=== PATIENT | male | born 1995 | race Caucasian/White ===

== ENCOUNTER 2020-10-22 13:39 | Outpatient (CLI) | payer OTHER ==
--- NOTE | 2020-10-22 17:01 | MRI Report ---
PROCEDURE: Shoulder LT W/O INDICATIONS: PAIN IN LEFT SHOULDER TECHNIQUE: Noncontrast oblique coronal T2 fast spin echo with fat saturation, oblique sagittal T1 spin echo and T2 fast spin echo with fat saturation, axial T1 spin echo and T2 fast spin echo with fat saturation t hrough the shoulder. COMPARISON: None. FINDINGS: Image quality: Excellent. Rotator cuff: Mild T2 signal elevation throughout the mid and anterior supraspinatus tendon at the hu meral insertion site extending to the muscular tendinous junction, indicating tendinopathy. Subscapul sandra, infraspinatus, and teres minor tendons are intact. No rotator cuff atrophy. Bones and bursae: No bone marrow contusions or fractures. Moderate acromioclavicular joint degenerat ion. The acromion demonstrates conventional anatomy, without an os acromiale. No pathologic subacro mial/subdeltoid bursal fluid is present. Capsule and soft tissues: In the absence of intra-articular contrast, the labrum and glenohumeral li gaments appear intact. The long head of the biceps tendon demonstrates normal location and morpholog y. The rotator interval appears normal, without fibrosis. The coracohumeral ligament is normal in t hickness. IMPRESSION: 1. Supraspinatus tendinopathy. No evidence of rotator cuff tear. 2. Acromioclavicular joint osteoarthritis. Reviewed by: Prabhakar Martinez MD on 10/22/2020 4:59 PM PDT Approved by: Prabhakar Martinez MD on 10/22/2020 4:59 PM PDT Station ID: [id number]
== END 2020-10-22 13:40 | disposition home or self-care (01) ==
LOC: DI 13:39
DX: M75.92 Shoulder lesion, unspecified, left shoulder (principal); M19.012 Primary osteoarthritis, left shoulder

== ENCOUNTER 2021-12-11 13:39 | Outpatient (CLI) | payer OTHER ==
--- NOTE | 2021-12-11 17:03 | MRI Report ---
PROCEDURE: LUMBAR SPINE WO INDICATIONS: BACK AND HIP PAIN TECHNIQUE: Noncontrast sagittal T1 spin echo and T2 fast echo, sagittal STIR, axial T1 and T2 fast spin echo thr ough the lumbar spine. In cases with scoliosis, additional coronal T2 fast spin echo may be performe d. COMPARISON: None. FINDINGS: Image quality: Diagnostic Alignment and Curvature: There is normal bony alignment. Bone Marrow: Marrow is of normal overall signal. No acute vertebral body compression fractures. Spinal Cord: Conus medullaris terminates at the L1 level. Visualized cord demonstrates normal signa l and size. Paraspinous Soft Tissues: No paravertebral masses. 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 T12-L1: Normal in appearance. L1-L2: Normal in appearance. L2-L3: Normal in appearance. L3-L4: The disc height and disc signal are well preserved. Mild to moderate disc bulge is seen. Mi ld facet hypertrophy is seen. There is moderate right-sided and mild left-sided neuroforaminal narro wing seen. No central canal narrowing is seen. L4-L5: The disc height and disc signal are well preserved. Mild disc bulge is seen, with a mild mary tral disc protrusion. Mild to moderate facet hypertrophy is seen. Mild to moderate bilateral neurofor aminal narrowing can be seen. No significant central canal narrowing is seen. L5-S1: No significant abnormality is seen. 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
== END 2021-12-11 13:40 | disposition home or self-care (01) ==
LOC: DI 13:39
PROVIDERS: ATTEND Student in an Organized Health Care Education/Training Program
DX: M47.26 Other spondylosis with radiculopathy, lumbar region (principal); M48.061 Spinal stenosis, lumbar region without neurogenic claudication; M51.26 Other intervertebral disc displacement, lumbar region

== ENCOUNTER 2023-05-15 14:33 | Emergency (ER) | payer OTHER ==
[2023-05-15 14:41] VITALS: BP 145/83; O2SAT 98
--- NOTE | 2023-05-15 14:48 | ED Physician Documentation ---
History of Present Illness - Stated complaint Stated Complaint: FATIGUE/SOA/COUGHING - Chief complaint Chief Complaint: General - History obtained from History obtained from: Patient, Family - History of Present Illness Timing: How many days ago (2) Pain level max: 3 Pain level now: 3 - Additonal information Additional information: 28-year-old male, active [employer], presents to the emergency department with cough, body aches and congestion for the past several days. States that he had a hard time breathing last night. Not having a hard time breathing now. He vapes. He states he used inhalers as a child but does not use them now. He states that he was exposed to RSV. Has not taken any medications at home for coughing, congestion or bodyaches. Denies any other cigarette use. Denies any other respiratory issues. No vomiting. He states that his was exposed to RSV at work and that the lady who exposed his to the RSV, her has pneumonia so he is concerned he may have pneumonia as well. Review of Systems Constitutional: reports: Chills. denies: Fever Ears: denies: Ear pain Nose: reports: Rhinorrhea / runny nose, Congestion Cardiac: denies: Chest pain / pressure Respiratory: reports: Dyspnea, Cough, Wheezing GI: denies: Nausea, Vomiting, Diarrhea Skin: denies: Rash Musculoskeletal: denies: Neck pain, Back pain Neurologic: denies: Headache PD PAST MEDICAL HISTORY - Past Medical History Past Medical History: No - Past Surgical History Past Surgical History: No - Present Medications Home Medications: Ambulatory Orders Medication Instructions Recorded Confirmed Albuterol Sulf [Ventolin Hfa 1 - 2 puffs INH Q4HR PRN #1 each 05/15/23 Inhaler] Benzonatate [Tessalon] 200 mg PO TID PRN #30 cap 05/15/23 Cetirizine HCl/Pseudoephedrine 1 tab PO BID PRN #20 tab 05/15/23 [Zyrtec-D ER 5 mg-120 mg Tablet] - Allergies Allergies/Adverse Reactions: Allergies Allergy/AdvReac Type Severity Reaction Status Date / Time No Known Drug Allergies Allergy Verified 05/15/23 14:35 - Social History Does the pt smoke?: No Smoking Status: Never smoker Does the pt drink ETOH?: No Does the pt have substance abuse?: No - Immunizations Immunizations are current?: Yes - POLST Patient has POLST: No PD ED PE NORMAL - Vitals Vital signs reviewed: Yes - General General: Alert and oriented X 3, No acute distress - HEENT HEENT: Moist mucous membranes, Pharynx benign - Neck Neck: Supple, no meningeal sign - Cardiac Cardiac: RRR - Respiratory Respiratory: No respiratory distress, Other (Mild wheezing bilaterally) - Abdomen Abdomen: Soft, Non tender, Non distended - Derm Derm: Warm and dry, No rash - Neuro Neuro: Alert and oriented X 3 Results - Vitals Vitals: Vital Signs - 24 hr 05/15/23 05/15/23 14:35 15:12 Temperature 37.2 C Heart Rate 72 74 Respiratory 16 20 Rate Blood Pressure 145/83 H O2 Saturation 98 Oxygen O2 Source Room air - Labs Labs: Laboratory Tests 05/15/23 14:45 Nasal Adenovirus (PCR) NOT DETECTED Nasal B. parapertussis DNA (PCR) NOT DETECTED Nasal Coronavir 229E PCR NOT DETECTED Nasal Coronavir HKU1 PCR NOT DETECTED Nasal Coronavir NL63 PCR NOT DETECTED Nasal Coronavir OC43 PCR NOT DETECTED Nasal Enterovir/Rhinovir PCR NOT DETECTED Nasal Influenza B PCR NOT DETECTED Nasal Influenza A PCR NOT DETECTED Nasal Parainfluen 1 PCR NOT DETECTED Nasal Parainfluen 2 PCR NOT DETECTED Nasal Parainfluen 3 PCR NOT DETECTED Nasal Parainfluen 4 PCR NOT DETECTED Nasal RSV (PCR) NOT DETECTED Nasal B.pertussis DNA PCR NOT DETECTED Nasal C.pneumoniae (PCR) NOT DETECTED Andrew Human Metapneumo PCR NOT DETECTED Nasal M.pneumoniae (PCR) NOT DETECTED Nasal SARS-CoV-2 (PCR) NOT DETECTED - Rads (name of study) cxr Relevant Findings:: Final report received, See rad report PD Medical Decision Making - ED course Complexity details: reviewed results, re-evaluated patient, considered differential, d/w patient, d/w family ED course: Patient is very well-appearing, nontoxic. Afebrile. No hypoxia. No respiratory distress. Chest x-ray does not show any acute abnormalities. Respiratory PCR is negative. Feels better after albuterol treatment. Will place on decongestants, cough medication and albuterol inhaler for home. [place]. Patient counseled regarding signs and symptoms for which I believe and urgent re- evaluation would be necessary. Patient with good understanding of and agreement to plan and is comfortable going home at this time This document was made in part using voice recognition software. While efforts are made to proofread this document, sound alike and grammatical errors may occur. Departure - Departure Disposition: 01 Home, Self Care Clinical Impression: Viral URI Condition: Good Instructions: ED Viral Syndrome Follow-Up: MIGUEL BYRNE MD [Primary Care Provider] - Within 1 week Prescriptions: Albuterol Sulf [Ventolin Hfa Inhaler] 1 - 2 puffs INH Q4HR PRN #1 each PRN Reason: Shortness Of Air/Wheezing Benzonatate [Tessalon] 200 mg PO TID PRN #30 cap PRN Reason: Cough Cetirizine HCl/Pseudoephedrine [Zyrtec-D ER 5 mg-120 mg Tablet] 1 tab PO BID PRN #20 tab PRN Reason: nasal congestion Comments: Your prescriptions were [facility] in [place]. Please follow-up with your doctor as needed for any further care. Your x-ray does not show any evidence of pneumonia. Drink plenty of fluids and rest. Forms: PCP List, Activity restrictions Discharge Date/Time: 05/15/23 15:39
--- NOTE | 2023-05-15 15:04 | XRAY Report ---
PROCEDURE: Chest 2V INDICATIONS: cough TECHNIQUE: 2 views of the chest were acquired. COMPARISON: None. FINDINGS: Surgical changes and devices: None. Lungs and pleura: No pleural effusions or pneumothorax. Lungs are clear. Mediastinum: Mediastinal contours appear normal. Heart size is normal. Bones and chest wall: No suspicious bony lesions. Overlying soft tissues appear unremarkable. IMPRESSION: No acute cardiopulmonary process. Reviewed by: Lucas Lozano MD on 05/15/2023 2:03 PM PILAR Approved by: Lucas Lozano MD on 05/15/2023 2:03 PM AKRICK Station ID: [id number]
[2023-05-15] MEDS: ALBUTEROL NEB 2.5 MG/3 ML INH STA (15:09)
[2023-05-15 15:50] LABS: B. PARAPERTUSSIS- RESP PCR PAN NOT DETECTED; B. PERTUSSIS- RESP PCR PANEL NOT DETECTED; C. PNEUMONIAE- RESP PCR PANEL NOT DETECTED; CORONAVIRUS 229E-RESP PCR NOT DETECTED; CORONAVIRUS HKU1-RESP PCR NOT DETECTED; CORONAVIRUS NL63-RESP PCR NOT DETECTED; CORONAVIRUS OC43-RESP PCR NOT DETECTED; HUMAN METAPNEUMOVIRUS NOT DETECTED; INFLUENZA A- RESP PCR PANEL NOT DETECTED; INFLUENZA B - RESP PCR PANEL NOT DETECTED; M. PNEUMONIAE- RESP PCR PANEL NOT DETECTED; PARAINFLUENZA VIRUS 1 NOT DETECTED; PARAINFLUENZA VIRUS 2 NOT DETECTED; PARAINFLUENZA VIRUS 3 NOT DETECTED; PARAINFLUENZA VIRUS 4 NOT DETECTED; RHINOVIRUS/ENTEROVIRUS NOT DETECTED; RSV- RESP PCR PANEL NOT DETECTED; SARS-CoV-2 -RESP PCR PANEL NOT DETECTED
== END 2023-05-15 15:39 | disposition home or self-care (01) ==
LOC: ED 14:33
DX: J06.9 Acute upper respiratory infection, unspecified (principal); Z11.52 Encounter for screening for COVID-19
CPT/HCPCS: 87633; 94640; 94664; 99283; 99284

== ENCOUNTER 2023-08-02 15:33 | Emergency (ER) | payer OTHER ==
--- NOTE | 2023-08-02 15:51 | ED Physician Documentation ---
PD HPI MHE - Stated complaint Stated Complaint: SI - Chief complaint Chief Complaint: MHE - History obtained from History obtained from: Patient PD PAST MEDICAL HISTORY - Past Medical History Past Medical History: Yes Cardiovascular: None Respiratory: None Neuro: None Endocrine/Autoimmune: None GI: None : None HEENT: None Psych: Depression, Anxiety Musculoskeletal: Chronic back pain Derm: None - Past Surgical History Past Surgical History: No Derm: Skin cancer surgery - Present Medications Home Medications: Ambulatory Orders Medication Instructions Recorded Confirmed Albuterol Sulf [Ventolin Hfa 1 - 2 puffs INH Q4HR PRN #1 each 05/15/23 08/02/23 Inhaler] Benzonatate [Tessalon] 200 mg PO TID PRN #30 cap 05/15/23 08/02/23 Cetirizine HCl/Pseudoephedrine 1 tab PO BID PRN #20 tab 05/15/23 08/02/23 [Zyrtec-D ER 5 mg-120 mg Tablet] Sertraline HCl 200 mg PO HS 08/02/23 08/02/23 hydrOXYzine pamoate [Hydroxyzine 25 mg PO QID PRN 08/02/23 08/02/23 Pamoate] - Allergies Allergies/Adverse Reactions: Allergies Allergy/AdvReac Type Severity Reaction Status Date / Time No Known Drug Allergies Allergy Verified 08/02/23 15:40 - Social History Does the pt smoke?: No Smoking Status: Never smoker Does the pt drink ETOH?: Yes Does the pt have substance abuse?: No - Immunizations Immunizations are current?: Yes - POLST Patient has POLST: No Results - Vitals Vitals: Vital Signs - 24 hr 08/02/23 15:41 Temperature 36.5 C Heart Rate 63 Respiratory 20 Rate Blood Pressure 144/77 H O2 Saturation 100 Oxygen O2 Source Room air Departure - Departure
--- NOTE | 2023-08-02 15:51 | ED Physician Documentation ---
PD HPI MHE - Stated complaint Stated Complaint: SI - Chief complaint Chief Complaint: MHE - History obtained from History obtained from: Patient - History of Present Illness Primary symptom: Suicidal ideation, Depression, Other (awakening from sleep often the past nights.). No: Suicide attempt PD PAST MEDICAL HISTORY - Past Medical History Past Medical History: Yes Cardiovascular: None Respiratory: None Neuro: None Endocrine/Autoimmune: None GI: None : None HEENT: None Psych: Depression, Anxiety Musculoskeletal: Chronic back pain Derm: None - Past Surgical History Past Surgical History: No Derm: Skin cancer surgery - Present Medications Home Medications: Ambulatory Orders Medication Instructions Recorded Confirmed Albuterol Sulf [Ventolin Hfa 1 - 2 puffs INH Q4HR PRN #1 each 05/15/23 08/02/23 Inhaler] Benzonatate [Tessalon] 200 mg PO TID PRN #30 cap 05/15/23 08/02/23 Cetirizine HCl/Pseudoephedrine 1 tab PO BID PRN #20 tab 05/15/23 08/02/23 [Zyrtec-D ER 5 mg-120 mg Tablet] Escitalopram [Lexapro] 10 mg PO DAILY #30 tablet 08/02/23 Sertraline HCl 200 mg PO HS 08/02/23 08/02/23 hydrOXYzine pamoate [Hydroxyzine 25 mg PO QID PRN 08/02/23 08/02/23 Pamoate] traZODone [Desyrel] 25 mg PO HS PRN #5 tablet 08/02/23 - Allergies Allergies/Adverse Reactions: Allergies Allergy/AdvReac Type Severity Reaction Status Date / Time No Known Drug Allergies Allergy Verified 08/02/23 15:40 - Social History Does the pt smoke?: No Smoking Status: Never smoker Does the pt drink ETOH?: Yes Does the pt have substance abuse?: No - Immunizations Immunizations are current?: Yes - POLST Patient has POLST: No Results - Vitals Vitals: Oxygen O2 Source Room air - Labs Labs: Laboratory Tests 08/02/23 08/02/23 08/02/23 15:58 15:58 16:00 WBC 7.6 RBC 5.11 Hgb 15.2 Hct 46.3 MCV 90.6 MCH 29.7 MCHC 32.8 RDW 12.7 Plt Count 320 MPV 10.2 Neut # (Auto) 2.7 Lymph # (Auto) 3.9 H [place] # (Auto) 0.5 Eos # (Auto) 0.4 Baso # (Auto) 0.1 Absolute Nucleated RBC 0.00 Nucleated RBC % 0.0 Sodium 139 Potassium 3.6 Chloride 102 Carbon Dioxide 31 Anion Gap 6.0 BUN 19 Creatinine 1.1 Estimated GFR (MDRD) 81 L Glucose 90 Calcium 9.6 Magnesium 1.9 Total Bilirubin 0.3 AST 24 ALT 28 Alkaline Phosphatase 78 Total Creatine Kinase 485 H Total Protein 6.5 Albumin 5.0 Globulin 1.5 L Albumin/Globulin Ratio 3.3 H Lipase 54 TSH 1.31 Urine Color YELLOW Urine Clarity CLEAR Urine pH 6.0 Ur Specific Pix[place] >=1.030 H Urine Protein NEGATIVE Urine Glucose (UA) NEGATIVE Urine Ketones NEGATIVE Urine Occult Blood NEGATIVE Urine Nitrite NEGATIVE Urine Bilirubin NEGATIVE Urine Urobilinogen 0.2 (NORMAL) Ur Leukocyte Esterase NEGATIVE Ur Microscopic Review NOT INDICATED Urine Culture Comments NOT INDICATED Salicylates < 1.5 Urine Opiates Screen NEGATIVE Ur Buprenorphine Scrn NEGATIVE Ur Oxycodone Screen NEGATIVE Urine Methadone Screen NEGATIVE Acetaminophen 0.3 Ur Barbiturates Screen NEGATIVE Ur Tricyclics Screen NEGATIVE Ur Phencyclidine Scrn NEGATIVE Ur Amphetamine Screen NEGATIVE U Methamphetamines Scrn NEGATIVE U Benzodiazepines Scrn NEGATIVE Urine Cocaine Screen NEGATIVE U Cannabinoids Screen NEGATIVE Ur Drug Screen Comment CUTOFF CONC BELOW: Ethyl Alcohol < 10.0 PD Medical Decision Making - ED course Complexity details: considered differential (Pt states he has counselor and has a safety plan with the counselor of whom to call if needs help, and to notify counselor if feeling more suicidal ideation, which is what happened today and led to pt being directed to ED, which pt did do. ), d/w patient, d/w family (initially his command and friend was here accompanying him. I asked command if they had a determined outcome of this, and he expressed did not require hospitalization. Defer to our judgement. then here at bedside. She was comfortable and preferable that pt come home.) Reviewed Lab Results: normal basic labs. The patient is interactive here, in pleasant mood, denies suicidal intent right now. He does state that had he had a gun at home, he would not likely be here right now as he lianna have likely not resisted temptation previously. I asked if he had alternative method for suicide in mind, and he said he would need to go out and acquire a gun "which would not be too hard" he says, but does not have a direct source at the moment. His feels comfortable with pt home. The patient says he looks forewward to being with his . Pt asks about a different antidepressant. He feels current one has not been working and he is most bothered by the lower libido side ef fect. I asked if his libido was less prior to the meds, and he does say yes to soem degree. He has better mood generally with antidepressant but decreased libido which is bothersome to both he and his ( at bedside also says the less sexual activity is bothersome for both of them). I feel the pateint does not need hospitalizasation. He is describing increased suicidal ideation since increasing dose of sertraline couple weeks ago, and has been on the med for about 7 weeks total so far, so time to see if it was improving mood enough. Mostly though, he is believing it is not ehlping enough and having more side effects, that he would not be effectively treated ons get med. I feel it is reasonable to change his antidepressant. The SSREIs/SNRIs are all potential to cause less libido. Pt is asking for change of meds, and I feel doing that sooner would have positive psychological effect for him. Improved consistent sleep can be helpful too, as he describes getting to sleep but awak ening often. He has referral out for sleep study as he deos describe snoring a lot, corrroborates. Pt to taper shortly on sertraline and start excitalopram. Can try lower dose trazodone for short term for sleep. To see counselor tomorrow. He will call in AM. To return to ED, call crisis line, or joe counselor/command if needed. I encouraged him to involve his in safety plan (apparently does not currently involve discussion with her as "I was trying to protect her and keep uninvolved"). I urged him to involve her as that is part of beingmarried. She was bedside during this discussion and expressed desire to be involved more in his thought process and conversation about his mood. Pt agreeable. Departure - Departure Disposition: 01 Home, Self Care Clinical Impression: Depression, Suicidal ideation, Disrupted sleep-wake cycle Condition: Stable Record reviewed to determine appropriate education?: Yes Instructions: ED Depression Follow-Up: ANDRES SANCHEZ MD [Primary Care Provider] - Prescriptions: traZODone [Desyrel] 25 mg PO HS PRN #5 tablet PRN Reason: Insomnia Escitalopram [Lexapro] 10 mg PO DAILY #30 tablet Comments: Go down to half a dose of your sertraline for 2 days as you start on the Lexapro new medication. Start with a lower dose sertraline with your next dose and it is okay to start this set S-Citalopram in the next couple of days. Will see if that antidepressant works better for you. The effect on individuals is so variable have to try it but it is from a different chemical structuring compared to the sertraline. To help more consistent sleep over the next few nights he could also take trazodone half a tablet at night. This is not only to help you get to sleep and see if it is staying asleep more consistently through the night. Stay well-hydrated. No alcohol. Follow-up with your counselor, call tomorrow for follow-up appointment. Follow-up with your primary care as well. Follow your safety plan if you are not feeling more stressed or suicidal ideation. Keep your updated when you are having problems and work out a cue system with her so that she knows if you are having increased stress or suicidal thoughts etc. I sent prescriptions to the [facility]. Forms: PCP List Discharge Date/Time: 08/02/23 18:00
[2023-08-02 15:53] VITALS: BP 144/77; O2SAT 100
[2023-08-02 16:02] LABS: BASOPHILS # (AUTO) 0.1 10^3/uL (0.0-0.1); BASOPHILS % (AUTO) 1.2 %; EOSINOPHILS # (AUTO) 0.4 10^3/uL (0.0-0.7); EOSINOPHILS % (AUTO) 5.5 %; HCT - HEMATOCRIT 46.3 % (42.0-52.0); HGB - HEMOGLOBIN 15.2 g/dL (14.0-18.0); LYMPHOCYTES # (AUTO) 3.9 10^3/uL (1.5-3.5); LYMPHOCYTES % (AUTO) 51.3 %; MEAN CORPUSCULAR HEMOGLOBIN 29.7 pg (27.0-31.0); MEAN CORPUSCULAR HGB CONC 32.8 g/dL (32.0-36.0); MEAN CORPUSCULAR VOLUME 90.6 fL (80.0-94.0); MEAN PLATELET VOLUME 10.2 fL (7.4-11.4); MONOCYTES # (AUTO) 0.5 10^3/uL (0.0-1.0); MONOCYTES % (AUTO) 6.7 %; NEUTROPHILS # (AUTO) 2.7 10^3/uL (1.5-6.6); PLT - PLATELET COUNT 320 10^3/uL (130-450); RED BLOOD COUNT 5.11 10^6/uL (4.70-6.10); RED CELL DISTRIBUTION WIDTH 12.7 % (12.0-15.0); WHITE BLOOD COUNT 7.6 x10^3/uL (4.8-10.8)
[2023-08-02 16:07] LABS: BILIRUBIN,URINE NEGATIVE (NEGATIVE); GLUCOSE, URINE (UA) NEGATIVE (NEGATIVE); KETONES,URINE (UA) NEGATIVE (NEGATIVE); LEUKOCYTE ESTERASE, URINE NEGATIVE (NEGATIVE); NITRITE,URINE NEGATIVE (NEGATIVE); OCCULT BLOOD,URINE NEGATIVE (NEGATIVE); PROTEIN,URINE NEGATIVE (NEGATIVE); UROBILINOGEN,URINE 0.2 (NORMAL) E.U./dL (NORMAL)
[2023-08-02 16:08] LABS: CLARITY,URINE CLEAR (CLEAR)
[2023-08-02 16:13] LABS: MAGNESIUM 1.9 mg/dL (1.7-2.3)
[2023-08-02 16:18] LABS: AMPHETAMINE SCREEN,URINE NEGATIVE (NEGATIVE); BARBITURATE SCREEN,UR NEGATIVE (NEGATIVE); BENZODIAZEPINES SCREEN, URINE NEGATIVE (NEGATIVE); BUPRENORPHINE SCREEN, URINE NEGATIVE (NEGATIVE); COCAINE SCREEN URINE NEGATIVE (NEGATIVE); METHADONE SCREEN, URINE NEGATIVE (NEGATIVE); METHAMPHETAMINES SCREEN, URINE NEGATIVE (NEGATIVE); OPIATE SCREEN, URINE NEGATIVE (NEGATIVE); OXYCODONE SCREEN, URINE NEGATIVE (NEGATIVE); THC CANNABINOID SCREEN, URINE NEGATIVE (NEGATIVE); TRICYCLIC ANTIDEPRESSANT,URINE NEGATIVE (NEGATIVE)
[2023-08-02 16:19] LABS: ACETAMINOPHEN 0.3 ug/mL; ALBUMIN/GLOBULIN RATIO 3.3 (1.0-2.2); ALKALINE PHOSPHATASE 78 IU/L (42-121); ALT ALANINE AMINOTRANSFERASE 28 IU/L (10-60); AST ASPARTATE AMINOTRANSFERASE 24 IU/L (10-42); BILIRUBIN,TOTAL 0.3 mg/dL (0.2-1.0); BUN - BLOOD UREA NITROGEN 19 mg/dL (6-20); CALCIUM 9.6 mg/dL (8.5-10.3); CARBON DIOXIDE - CO2 31 mmol/L (21-32); CHLORIDE 102 mmol/L (101-111); CK- CREATINE KINASE 485 IU/L (30-223); CREATININE 1.1 mg/dL (0.6-1.3); ETOH - ETHANOL < 10.0 mg/dL; GFR - MDRD 81 (>89); GLUCOSE 90 mg/dL (74-104); LIPASE 54 U/L (11-82); POTASSIUM 3.6 mmol/L (3.5-4.5); SODIUM 139 mmol/L (135-145); TOTAL PROTEIN 6.5 g/dL (6.4-8.9)
[2023-08-02 16:21] LABS: SALICYLATE < 1.5 mg/dL
[2023-08-02 16:31] LABS: THYROID STIMULATING HORMONE 1.31 uIU/mL (0.34-5.60)
== END 2023-08-02 18:00 | disposition home or self-care (01) ==
LOC: ED 15:33
DX: R45.851 Suicidal ideations (principal); F32.A Depression, unspecified; G47.20 Circadian rhythm sleep disorder, unspecified type
CPT/HCPCS: 36415; 80053; 80143; 80179; 80306; 81001; 81003; 82077; 82550; 83690; 83735; 84443; 85025; 87086; 99283

== ENCOUNTER 2023-09-02 09:44 | Outpatient (CLI) | payer OTHER ==
--- NOTE | 2023-09-02 13:38 | MRI Report ---
PROCEDURE: Knee LT WO INDICATIONS: BILATERAL KNEE PAIN TECHNIQUE: Noncontrast sagittal PD fast spin echo and T2 fast spin echo with fat saturation, sagittal 3-D gradie nt sequence with fat saturation; coronal T1 spin echo and PD fast spin echo with fat saturation, and axial PD fast spin echo with fat saturation through the knee. COMPARISON: None. FINDINGS: Image quality: Diagnostic Menisci Medial: Intact. Meniscocapusular junction maintained. Lateral: Intact. Meniscopopliteal fascicles maintained. Cruciate ligaments: Intact Medial structures MCL: Intact Pes anserine tendons: Intact Semimembranosus: Intact Lateral structures LCL: Intact Biceps femoris: Intact IT band: Intact Popliteus tendon: Intact Anterior structures Extensor mechanism: Mild prepatellar soft tissue edema. No significant tear of the extensor mechanism Fat pads: Mild edema at the superolateral corner of Hoffa's fat pad Medial retinaculum: Intact. Trochlea: TT TG distance is borderline 1.6 cm. There is slight lateral patellar tilt. Bone and joint Bones: No fracture, dislocation, or suspicious edema Cartilage: There is mild to moderate heterogeneity of the patellar cartilage. No full-thickness defec t Joint space: Physiologic fluid. No measureable loose body. Perez's cyst: None Soft tissues: No significant vascular or other soft tissue pathology. IMPRESSION: Borderline TT TG distance. Mild edema in the superolateral corner of Hoffa's fat pad with slight late ral patellar tilt, findings that can sometimes be seen with patellar maltracking. No significant meniscal tear or defect in the cruciate or collateral ligament Mild heterogeneity of the patellar cartilage, without full-thickness defect. Reviewed by: Fercho Nickerson MD on 09/02/2023 1:36 PM PDT Approved by: Fercho Nickerson MD on 09/02/2023 1:36 PM PDT Station ID: [id number]
--- NOTE | 2023-09-02 13:43 | MRI Report ---
PROCEDURE: Knee RT WO INDICATIONS: BILATERAL KNEE PAIN TECHNIQUE: Noncontrast sagittal PD fast spin echo and T2 fast spin echo with fat saturation, sagittal 3-D gradie nt sequence with fat saturation; coronal T1 spin echo and PD fast spin echo with fat saturation, and axial PD fast spin echo with fat saturation through the knee. COMPARISON: None. FINDINGS: Image quality: Diagnostic Menisci Medial: Possible tiny horizontal tear of the posterior horn Lateral: Intact. Meniscopopliteal fascicles maintained. Cruciate ligaments: Intact Medial structures MCL: Intact Pes anserine tendons: Intact Semimembranosus: Intact Lateral structures LCL: Intact Biceps femoris: Intact IT band: Intact Popliteus tendon: Intact Anterior structures Extensor mechanism: Mild prepatellar soft tissue edema. No extensor mechanism defect Fat pads: No pathologic edema Medial retinaculum: Intact. Trochlea: TT TG distance is borderline enlarged at 1.8 cm. There is slight lateral patellar tilt and shallow trochlear morphology Bone and joint Bones: No fracture, dislocation, or suspicious edema. Possible intraosseous ganglion at the proximal tibia, versus small enchondroma Cartilage: Mild heterogeneity of the patellar cartilage without full-thickness defect. Joint space: Physiologic fluid. No measureable loose body. Perez's cyst: None Soft tissues: No significant vascular or other soft tissue pathology. IMPRESSION: Borderline enlarged TT TG distance at 1. Centimeters with slight lateral patellar tilt, sometimes see n with maltracking. Possible tiny horizontal tear of the posterior horn the medial meniscus, which may be degenerative. N o significant meniscal defect elsewhere. Mild heterogeneity of the patellar cartilage without full-thickness defect. Intact cruciate and collateral ligaments. Reviewed by: Fercho Nickerson MD on 09/02/2023 1:41 PM PDT Approved by: Fercho Nickerson MD on 09/02/2023 1:41 PM PDT Station ID: [id number]
== END 2023-09-02 09:45 | disposition home or self-care (01) ==
LOC: DI 09:44
DX: M25.561 Pain in right knee (principal); M25.562 Pain in left knee